=== PATIENT | female | born 1985 | race Caucasian/White ===

== ENCOUNTER 2018-04-09 15:05 | Emergency (ER) | payer BC, OTHER ==
[~2018-04-09] VITALS: Ht 170.2 cm; Wt 74.8 kg
[2018-04-09] MEDS ORDERED: AMOX-430 PO (15:18)
[2018-04-09] MEDS ORDERED: FLUT16SP2 NS (15:18)
[2018-04-09] MEDS ORDERED: ALBU8.5H8 IH (15:18)
[2018-04-09] MEDS ORDERED: IPRATROPIUM BROMIDE 0.5 MG/2.5 ML NEBU NEB ONE (15:30)
[2018-04-09] MEDS ORDERED: ALBUTEROL SULFATE 2.5 MG/3 ML NEBU NEB ONE ×2 (15:30→16:45)
[2018-04-09] MEDS ORDERED: predniSONE 10 MG TABLET PO ONE (15:30)
[2018-04-09] MEDS ORDERED: ALBUTEROL SULFATE 2.5 MG/3 ML NEBU ONE ×2 (15:35→16:43)
[2018-04-09] MEDS ORDERED: IPRATROPIUM BROMIDE 0.5 MG/2.5 ML NEBU ONE (15:36)
[2018-04-09] MEDS ORDERED: predniSONE 20 MG TABLET ONE (15:41)
--- NOTE | 2018-04-09 16:11 | NUR ---
Patient still has mild wheezes but speaking comfortably. Family is at bedside.
[2018-04-09] MEDS ORDERED: ACETAMINOPHEN ES 500 MG TABLET ONE (16:53)
[2018-04-09] MEDS ORDERED: ACETAMINOPHEN ES 500 MG TABLET PO ONE (17:00)
--- NOTE | 2018-04-09 17:03 | NUR ---
Neb treatment continues. Patient tolerating the treatment well.
--- NOTE | 2018-04-09 17:49 | NUR ---
Dr Reyes is okay with current heart rate= 114-117/min for discharge. Patient wants to go home now. Family members are at bedside. Patient discharged to home in stable conditon & brisk steady gait. 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 Patient and family verbalized understanding of instructions.
== END 2018-04-09 17:52 | disposition home or self-care (01) ==
LOC: ER 15:05
DX: J45.909 Unspecified asthma, uncomplicated (principal); J06.9 Acute upper respiratory infection, unspecified; Z79.51 Long term (current) use of inhaled steroids; Z79.899 Other long term (current) drug therapy
CPT/HCPCS: 94640 ×2; 99284; J7512; A4663; A9150; J3590